=== PATIENT | female | born 1955 | race Caucasian/White ===

== ENCOUNTER 2018-08-28 21:24 | Observation (INO) ==
[2018-08-29] MEDS ORDERED: Naloxone 0.4 MG/ML INJ IVP PRN (03:16)
[2018-08-29] MEDS ORDERED: Dextrose Gel 15 GM/37.5 ML TUBE PO PRN ×4 (03:24→07:53)
[2018-08-29] MEDS ORDERED: *HR* Dextrose 50 % in Water (Syg) 50 ML SYRINGE IVP PRN ×2 (03:24→07:53)
[2018-08-29] MEDS ORDERED: D5% in Water 1,000 ML IVC PRN ×2 (03:24→07:53)
[2018-08-29] MEDS ORDERED: Heparin 25,000 UNIT/250 ML D5W 25,000 UNIT/250 ML IV.SOLN IVC SCH (03:30)
[2018-08-29 03:55] LABS: Basophils % 0.4 %; Eosinophils # 0.3 K/mcL (0.0-0.6); Eosinophils % 3.3 %; Hemoglobin 13.9 g/dL (11.5-15.4); Immature Granulocytes % 0.8 % (0-4); Lymphocytes # 2.7 K/mcL (0.6-4.6); Lymphocytes % 28.9 %; Mean Corpuscular HGB Conc 33.1 g/dL (31.6-35.5); Mean Corpuscular Hemoglobin 27.7 pg (28.0-33.3); Mean Corpuscular Volume 83.7 fL (83.0-100.0); Mean Platelet Volume 9.6 fL (9.4-12.4); Monocytes # 0.7 K/mcL (0.0-1.3); Monocytes % 7.1 %; Neutrophils # 5.5 K/mcL (1.6-8.9); Platelet Count 247 K/mcL (140-400); Red Blood Count 5.02 M/mcL (3.82-4.97); Red Cell Distribution Width 13.2 % (11.5-14.5); Segmented Neutrophils % 59.5 %
--- NOTE | 2018-08-29 04:04 | Internal Med History&Physical ---
Date of Encounter: 08/29/18 Time of Encounter: 02:30 Internal Medicine - H&P: HPI Chief complaint: Chest Pain Admitted From: Hospital to Hospital Transfer Plans for Post Hospital Care: Home History of present illness: Ms. Ann is a 63 year old female with past medical history significant for CAD with stents x2, hyperlipidemia, diabetes, gerd, asthma, kidney stones, fibromyalgia, breast cancer in remission, and skin cancer in remission who presents from [facility] ER for complaints of intermittent bilateral jaw pain for past three days getting progressively worse. Describes pain as being exactly the same as what she experienced in November 2017 requiring heart catheterization with 2 stents, but she states it is not as intense. Pain is described as aching and rated at 3/10 at its worst. Pain is exacerbated with exertion and relieved with rest. Pain is associated with diaphoresis and fatigue. Denies any associated chest pain. Sending ER reported EKG as sinus rhythm with no ST elevation. Sending ER also obtained chest xray which showed no acute findings. Sending ER administered full dose aspirin and nitro which patient reports nearly resolved her pain. Currently denies any headache, chest pain, shortness of breath, abdominal pain, bowel or bladder changes. Had abnormal stress in November 2018 positive for ischemia and echocardiogram with 60- 65% EF. Subsequently, she underwent a heart catheterization with stent placement to the proximal LAD and OM. Checks blood sugars regularly and reports they have been averaging 200. Follows regularly with PCP every six months, oncology and dermatology annually, and podiatry every three months. Also follows regularly with [facility] and last saw Dr Sanchez in June 2018. Past Med Surg Social Fam HX - Past Medical History Medical history: asthma, cancer, coronary artery disease, diabetes, GERD, kidney stones, thyroid disease Additional medical history: breast cancer, remission x10 years, kidney stone, skin cancer Psychiatric history: no psych history - Past Surgical History Surgical History: appendectomy, cataract, knee replacement Additional surgical history: bilateral masectomy. back surgery. carpal tunnel - Social History Smoking Status: Never smoker Smokeless Tobacco Status: No Alcohol use: none Drug use: none - Family History Brother Hx Family Cardiac Disorders: Yes (CABG, PCI (multiple brothers)) Sister Hx Family Cardiac Disorders: Yes (CABG, PCI (multiple sisters)) Father Living Status: Internal Medicine - H&P: Meds Albuterol Sulfate [Proair Hfa] 2 puff IH Q6H PRN 07/27/18 [History] Aspirin [Adult Aspirin] 81 mg PO DAILY 07/27/18 [History] Calcium Carbonate [Calcium] 600 mg PO DAILY 07/27/18 [History] Clopidogrel [Plavix] 75 mg PO DAILY 07/27/18 [History] Insulin Glargine,Hum.rec.anlog [Lantus Solostar] 80 unit SQ HS 07/27/18 [History] Insulin LISPRO [HumaLOG] 0 units SQ TIDWM 07/27/18 [History] Metoprolol Succinate [Toprol Xl] 12.5 mg PO DAILY 07/27/18 [History] Multivitamin [Daily Multiple Vitamin] 1 tab PO DAILY 07/27/18 [History] [place]-3/Dha/Epa/Fish Oil [Fish Oil 1,000 mg Softgel] 1 cap PO DAILY 07/27/18 [History] Pravastatin Sodium 10 mg PO DAILY 07/27/18 [History] Turmeric 400 mg PO DAILY 07/27/18 [History] Esomeprazole Magnesium [Nexium] 20 mg PO DAILY 08/28/18 [History] Ascorbic Acid/Ascorbate Sodium [Vitamin C 500 mg Wafer] 500 mg PO ONCE 08/29/18 [History] Ketorolac OPTH Soln [Acular] 1 drop LEFT EYE BID 08/29/18 [History] Prednisolone Acetate/Pf [Prednisolone Acet 1% Eye Drop] 1 drop LEFT EYE BID 08/29/18 [History] Allergy/AdvReac Type Severity Reaction Status Date / Time hydromorphone [From Dilaudid] Allergy Vomiting Verified 08/28/18 18:41 tramadol Allergy Hives Verified 08/28/18 18:41 All Systems PM: A 10-system review of systems was performed and is negative for pertinent findings except as documented above in the HPI. - Constitutional Vitals: Temp Pulse Resp BP Pulse Ox 97.7 F 71 17 113/60 98 08/28/18 23:08 08/28/18 23:08 08/28/18 23:08 08/28/18 23:08 08/28/18 23:08 Exam: General: Alert and oriented. Skin:Normal color, no rash, no lesions. HEENT:Pupils equal, round and reactive. Cardiovascular:Normal S1 & S2, no rubs, murmurs or gallops. No JVD. Pulse regular. Lungs:Normal breath sounds, no wheezes or crackles. Abdomen:Obese, soft, non-tender, no rigidity. Extremities:No deformity, no edema or tenderness, no joint swelling or clubbing. Neurological:Normal cognition and motor skills. Pulses:Carotid and radial pulses normal +2. Rest of the physical exam is non contributory. - Assessment and Plan (1) Jaw pain Current Visit: Yes Status: Acute Assessment and plan: Same presentation in November 2017 requiring heart catheterization with stents x2. Pain improved with nitro. Sending ER started heparin drip, will continue same. Initial troponin negative, serial troponins ordered. Continuous cardiac monitoring. Cardiology consult ordered, will need called in a.m. (2) Diabetes mellitus Current Visit: Yes Status: Chronic Assessment and plan: Hold home medications. Accucheck q6 hours. Sliding scale insulin ordered. Qualifiers: Diabetes mellitus type: type 2 Qualified Code(s): E11.9 - Type 2 diabetes mellitus without complications (3) Asthma Current Visit: Yes Status: Chronic Assessment and plan: Continue home medications once verified. Qualifiers: Asthma complication type: unspecified Qualified Code(s): J45.909 - Unspecified asthma, uncomplicated (4) GERD (gastroesophageal reflux disease) Current Visit: Yes Status: Chronic Assessment and plan: Continue home medications once verified. Qualifiers: Esophagitis presence: esophagitis presence not specified Qualified Code(s): K21.9 - Gastro-esophageal reflux disease without esophagitis (5) Hyperlipidemia Current Visit: Yes Status: Chronic Assessment and plan: Continue home medications once verified. Qualifiers: Hyperlipidemia type: unspecified Qualified Code(s): E78.5 - Hyperlipidemia, unspecified (6) DVT prophylaxis Current Visit: Yes Status: Acute Assessment and plan: On heparin drip. - Time Spent With Patient Total time spent is greater than 50% in coordination of care (as documented) at patient's floor/unit and/or counseling patient:
[2018-08-29 04:08] LABS: BUN/Creatinine Ratio 19 (6-26); Blood Urea Nitrogen 15 mg/dL (8-23); Calcium 9.4 mg/dL (8.6-10.3); Carbon Dioxide 26 mEq/L (23-29); Chloride 105 mEq/L (98-107); Glucose 156 mg/dL (70-105); Osmolality,Calculated 290 (280-300); Sodium 138 mEq/L (136-145); eGFR For Non-African Americans > 60 (> 60)
[2018-08-29] MEDS ORDERED: Insulin LISPRO 300 UNITS/3 ML VIAL SQ SCH ×2 (06:00→21:00)
[2018-08-29 09:25] LABS: C-Reactive Protein 12 mg/L (Less than 10)
[2018-08-29] MEDS: Ketorolac OPTH Soln 5 ML BOTTLE LEFT EYE SCH ×2 (11:02→20:57)
[2018-08-29] MEDS: Aspirin Enteric Coated 81 MG Tablet PO SCH (11:02)
[2018-08-29] MEDS: Ascorbic Acid 500 MG TABLET PO SCH (11:02)
[2018-08-29] MEDS: (Omega-3/Dha/Epa/Fish Oil [Fish Oil 1,000 Mg Softgel]) PO SCH (11:03)
[2018-08-29] MEDS: PrednisoLONE Acetate 1% Opth 5 ML BOTTLE LEFT EYE SCH ×2 (11:03→20:57)
[2018-08-29] MEDS: TURMERIC 400 MG PO SCH (11:03)
[2018-08-29] MEDS: Multivit/Ca/Min/Fe/FA 1 TAB TABLET PO SCH (11:03)
[2018-08-29] MEDS: Metoprolol XL (24 HR) Succ 25 MG TAB.ER.24H PO SCH (11:04)
[2018-08-29] MEDS: Insulin LISPRO 300 UNITS/3 ML VIAL SQ SCH ×2 (12:44→16:43)
[2018-08-29] MEDS ORDERED: Insulin DETEMIR 100 UNIT/ML X5UNITS SQ SCH (21:00)
[2018-08-30 05:03] LABS: Hemoglobin 14.1 g/dL (11.5-15.4); Mean Corpuscular HGB Conc 32.8 g/dL (31.6-35.5); Mean Corpuscular Volume 85.5 fL (83.0-100.0); Mean Platelet Volume 9.9 fL (9.4-12.4); Platelet Count 211 K/mcL (140-400); Red Blood Count 5.03 M/mcL (3.82-4.97); Red Cell Distribution Width 13.2 % (11.5-14.5)
[2018-08-30 05:21] LABS: BUN/Creatinine Ratio 16 (6-26); Blood Urea Nitrogen 12 mg/dL (8-23); Calcium 9.1 mg/dL (8.6-10.3); Carbon Dioxide 26 mEq/L (23-29); Chloride 106 mEq/L (98-107); Glucose 154 mg/dL (70-105); Osmolality,Calculated 289 (280-300); Potassium 3.9 mEq/L (3.5-5.1); Sodium 138 mEq/L (136-145); eGFR For Non-African Americans > 60 (> 60)
[2018-08-30] MEDS: Insulin LISPRO 300 UNITS/3 ML VIAL SQ SCH ×2 (07:51→13:41)
[2018-08-30] MEDS: Multivit/Ca/Min/Fe/FA 1 TAB TABLET PO SCH (08:30)
[2018-08-30] MEDS: Aspirin Enteric Coated 81 MG Tablet PO SCH (08:30)
[2018-08-30] MEDS: Metoprolol XL (24 HR) Succ 25 MG TAB.ER.24H PO SCH (08:30)
[2018-08-30] MEDS: (Omega-3/Dha/Epa/Fish Oil [Fish Oil 1,000 Mg Softgel]) PO SCH (08:31)
[2018-08-30] MEDS: Ascorbic Acid 500 MG TABLET PO SCH (08:31)
[2018-08-30] MEDS: TURMERIC 400 MG PO SCH (08:31)
[2018-08-30] MEDS: Ketorolac OPTH Soln 5 ML BOTTLE LEFT EYE SCH (08:32)
[2018-08-30] MEDS: PrednisoLONE Acetate 1% Opth 5 ML BOTTLE LEFT EYE SCH (08:32)
[2018-08-30 11:50] VITALS: BP 130/77
--- NOTE | 2018-08-30 14:13 | Discharge Summary ---
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 Diabetes mellitus complication status: without complication Qualified Code(s): E11.9 - Type 2 diabetes mellitus without complications (2) Jaw pain Priority: Primary Status: Acute (3) Asthma Priority: Secondary Status: Chronic Qualifiers: Asthma complication type: unspecified Qualified Code(s): J45.909 - Unspecified asthma, uncomplicated (4) GERD (gastroesophageal reflux disease) Priority: Secondary Status: Chronic Qualifiers: Esophagitis presence: esophagitis presence not specified Qualified Code(s): K21.9 - Gastro-esophageal reflux disease without esophagitis (5) Hyperlipidemia Priority: Secondary Status: Chronic Qualifiers: Hyperlipidemia type: unspecified Qualified Code(s): E78.5 - Hyperlipidemia, unspecified Hospital course: Ms. Ann is a 63 year old female past medical history of CAD with stents 2 hyperlipidemia diabetes current asthma kidney stones fibromyalgia breast cancer in remission and skin cancer in remission presented to [facility] with complaints of intermittent bilateral jaw pain occurring 3 days prior to presentation. Patient was concerned because pain was similar to previous experience requiring heart catheterization with 2 stents. EKG with no ST-T wave abnormalities troponins were negative 3 cardiac echo with EF 65% normal LV chamber size mild left ventricular diastolic dysfunction asymmetric basal septal hypertrophy no evidence of pulmonary hypertension and significant valvular disease. Patient did undergo a 2 day nuclear stress test which was negative for any ischemia or infarct. Currently she denies any chest pain or discomfort at this time patient has been advised to follow with primary care provider as well as cardiology. She is here they have been stable this time and ready for discharge. - Time Spent with Patient Total time spent providing and/or coordinating discharge services: - Discharge Medications Prescriptions: Continued Insulin LISPRO [HumaLOG] 5 - 7 units SQ TIDWM [place]-3/Dha/Epa/Fish Oil [Fish Oil 1,000 mg Softgel] 1 cap PO DAILY Clopidogrel [Plavix] 75 mg PO DAILY Aspirin [Adult Aspirin] 81 mg PO DAILY Albuterol Sulfate [Proair Hfa] 2 puff IH Q6H PRN PRN Reason: Shortness Of Breath Insulin Glargine,Hum.rec.anlog [Lantus Solostar] 80 unit SQ HS Metoprolol Succinate [Toprol Xl] 12.5 mg PO DAILY Multivitamin [Daily Multiple Vitamin] 1 tab PO DAILY Pravastatin Sodium 10 mg PO HS Turmeric 400 mg PO DAILY Ascorbic Acid/Ascorbate Sodium [Vitamin C 500 mg Wafer] 500 mg PO DAILY Prednisolone Acetate/Pf [Prednisolone Acet 1% Eye Drop] 1 drop LEFT EYE BID Ketorolac OPTH Soln [Acular] 1 drop LEFT EYE BID Calcium Carbonate [Calcium] 500 mg PO BID Lactobacillus Combination No.9 [Adult 50 + Probiotic] 1 cap PO DAILY Esomeprazole Magnesium [Nexium] 20 mg PO DAILY Home Medications: Albuterol Sulfate [Proair Hfa] 2 puff IH Q6H PRN 07/27/18 [History] Aspirin [Adult Aspirin] 81 mg PO DAILY 07/27/18 [History] Clopidogrel [Plavix] 75 mg PO DAILY 07/27/18 [History] Insulin Glargine,Hum.rec.anlog [Lantus Solostar] 80 unit SQ HS 07/27/18 [History] Insulin LISPRO [HumaLOG] 5 - 7 units SQ TIDWM 07/27/18 [History] Metoprolol Succinate [Toprol Xl] 12.5 mg PO DAILY 07/27/18 [History] Multivitamin [Daily Multiple Vitamin] 1 tab PO DAILY 07/27/18 [History] [place]-3/Dha/Epa/Fish Oil [Fish Oil 1,000 mg Softgel] 1 cap PO DAILY 07/27/18 [History] Pravastatin Sodium 10 mg PO HS 07/27/18 [History] Turmeric 400 mg PO DAILY 07/27/18 [History] Esomeprazole Magnesium [Nexium] 20 mg PO DAILY 08/28/18 [History] Ascorbic Acid/Ascorbate Sodium [Vitamin C 500 mg Wafer] 500 mg PO DAILY 08/29/18 [History] Calcium Carbonate [Calcium] 500 mg PO BID 08/29/18 [History] Ketorolac OPTH Soln [Acular] 1 drop LEFT EYE BID 08/29/18 [History] Lactobacillus Combination No.9 [Adult 50 + Probiotic] 1 cap PO DAILY 08/29/18 [History] Prednisolone Acetate/Pf [Prednisolone Acet 1% Eye Drop] 1 drop LEFT EYE BID 08/29/18 [History] Allergies/Adverse Reactions: Allergy/AdvReac Type Severity Reaction Status Date / Time hydromorphone [From Dilaudid] Allergy Vomiting Verified 08/28/18 18:41 tramadol Allergy Hives Verified 08/28/18 18:41 Date of admission: 08/28/18 22:22 Primary care physician: Jeffrey Hurt MD Discharging clinician: Teena Lira Anticipated date of discharge: 08/30/18 - Constitutional Vitals: Temp Pulse Resp BP Pulse Ox 98.1 F 76 16 130/77 96 08/30/18 11:44 08/30/18 11:44 08/30/18 11:44 08/30/18 11:44 08/30/18 11:44 Exam: Skin: Free of rash and discoloration. Eyes: Sclera is white. There is no discharge from eyes. ENMT: Oral/pharyngeal mucosa is normal in appearance. There is no discharge from nose or ears. Respiratory: Normal breath sounds with no crackles and wheezes bilaterally. CV: Heart is regular with no gallop or murmur. GI: Abdomen is flat and soft with no palpable mass or visceromegaly. : There is no tenderness in patient's flanks bilaterally. Neuro exam: He has good strength in upper and lower extremities. He has normal eye movements. Psychiatric: He has normal affect. His thought process is appropriate to the situation. - Patient Status Disposition: Home, Self-Care Condition: Good Functional capacity at discharge: independent ambulation Overall status at discharge: patient is back to baseline - Discharge Instructions Follow Up With: [facility] [Provider Group] (An appointment has been requested. The office will contact you at home with an appointment. ) Jeffrey Hurt MD [Primary Care Provider] - 09/04/18 2:30 pm () - Diet and Activity Activity: resume usual activities as tolerated Diet: advance to your usual diet
== END 2018-08-30 16:01 | disposition home or self-care (01) ==
LOC: 3BNU
PROVIDERS: ADMIT Pediatrics; ATTEND Pediatrics